=== PATIENT | female | born 1945 | race Two or more races ===

== ENCOUNTER 2024-12-31 13:46 | Emergency (ER) | payer OTHER ==
[~2024-12-31] VITALS: Ht 144.8 cm; Wt 60.8 kg
[2024-12-31] MEDS ORDERED: SYMBASTATIN (14:18)
== END 2024-12-31 17:52 | disposition home or self-care (01) ==
LOC: ER 13:47
DX: G89.11 Acute pain due to trauma (principal); M79.605 Pain in left leg; I10 Essential (primary) hypertension